=== PATIENT | female | born 1960 | race Caucasian/White ===

== ENCOUNTER 2018-01-27 08:01 | Emergency (ER) | payer BC ==
[~2018-01-27] VITALS: Ht 162.6 cm; Wt 72.6 kg
[2018-01-27 08:10] VITALS: BP 172/97
[2018-01-27 09:15] LABS: Basophils # (auto) 0 uL; Basophils % (auto) 0.7 % (0.0-2.0); Eosinophils # (auto) 0.1 uL; Eosinophils % (auto) 1.9 % (0.0-7.0); Hematocrit 43.3 % (36.0-46.0); Hemoglobin 14.7 g/dL (12.2-16.2); Lymphocytes # (auto) 1.1 uL; Lymphocytes % (auto) 17.5 % (10.0-50.0); Mean Corpuscular Hemoglobin 30.8 pg (28.0-32.0); Mean Corpuscular Volume 90.8 fL (80.0-100.0); Monocytes # (auto) 0.2 uL; Monocytes % (auto) 3.7 % (0.0-12.0); Neutrophils # (auto) 4.8 uL; Neutrophils % (auto) 76.2 % (37.0-80.0); Nucleated Red Blood Cells % 0.1 %; Platelet Count (auto) 234 10^3/uL (140-450); Red Blood Cells 4.77 10^6/uL (4.0-5.20); Red Cell Distribution Width 12.5 % (11.8-14.3); White Blood Cell 6.3 10^3/uL (4.4-10.8)
[2018-01-27 09:41] LABS: Alanine Aminotransferase 34 U/L (13-56); Albumin 4.2 g/dL (3.4-5.0); Alkaline Phosphatase 76 U/L (45-117); Anion Gap 8 (5-15); Aspartate Aminotransferase 20 U/L (15-37); BUN/Creatinine Ratio 16.2; Bilirubin, Total 0.6 mg/dL (0.2-1.0); Blood Urea Nitrogen 11 mg/dL (7-18); Calcium 9.8 mg/dL (8.5-10.1); Carbon Dioxide 27 mmol/L (21-32); Chloride 103 mmol/L (98-107); GFR African American 114 mL/min; GFR Non-African American 94 mL/min; Glucose 141 mg/dL (74-106); Potassium 3.5 mmol/L (3.5-5.1); Sodium 138 mmol/L (136-145); Total Protein 7.5 g/dL (6.4-8.2)
== END 2018-01-27 11:42 | disposition left against medical advice (07) ==
LOC: ER 08:01
DX: R07.89 Other chest pain (principal); Z53.21 Procedure and treatment not carried out due to patient leaving prior to being seen by health care provider
CPT/HCPCS: 36415; 71046; 80053; 84484; 85025; 93005

== ENCOUNTER 2020-07-13 05:00 | Inpatient (IN) | payer BC ==
[~2020-07-13] VITALS: Ht 162.6 cm; Wt 75.7 kg
[2020-07-13] MEDS ORDERED: ONDANSETRON HCL 4 MG/2 ML VIAL IV ONE (06:00)
[2020-07-13] MEDS ORDERED: SODIUM CHLORIDE 0.9% 1,000 ML IV ONE (06:00)
[2020-07-13 06:49] LABS: Basophils # (auto) 0 10 ^3/uL (0-0.2); Basophils % (auto) 0.4 % (0.0-2.0); Eosinophils # (auto) 0 10 ^3/uL (0-0.8); Eosinophils % (auto) 0.1 % (0.0-7.0); Hematocrit 38.7 % (36.0-46.0); Hemoglobin 13.2 g/dL (12.2-16.2); Lymphocytes # (auto) 0.3 10 ^3/uL (0.4-5.4); Lymphocytes % (auto) 3.2 % (10.0-50.0); Mean Corpuscular Hemoglobin 31.4 pg (28.0-32.0); Mean Corpuscular Hgb Conc. 34.2 g/dL (32.0-36.0); Monocytes # (auto) 0.4 10 ^3/uL (0-1.3); Neutrophils # (auto) 8.5 10 ^3/uL (1.6-8.6); Neutrophils % (auto) 92.3 % (37.0-80.0); Platelet Count (auto) 205 10^3/uL (140-450); Red Cell Distribution Width 12.5 % (11.8-14.3); White Blood Cell 9.3 10^3/uL (4.4-10.8)
[2020-07-13] MEDS ORDERED: LABETALOL HCL 5 MG/ML 4ML SYRINGE IV ONE (07:00)
[2020-07-13 07:10] LABS: Calcium 9.2 mg/dL (8.5-10.1); Potassium 3.5 mmol/L (3.5-5.1)
[2020-07-13 07:13] LABS: Bilirubin, Total 0.5 mg/dL (0.2-1.0); Total Protein 7.3 g/dL (6.4-8.2)
[2020-07-13 07:19] LABS: Amylase 16 U/L (25-115); Lipase 103 U/L (73-393)
[2020-07-13] MEDS ORDERED: ACETAMINOPHEN 325 MG TAB PO ONE (07:30)
[2020-07-13] MEDS ORDERED: HYDROcodone-ACET 10/325MG TAB PO ONE (07:30)
[2020-07-13 08:18] LABS: Urine Amorphous Crystal MOD /hpf (None Seen); Urine Bacteria FEW /hpf (None Seen); Urine Blood 3+ /uL (Negative); Urine Budding Yeast OCCASIONAL /hpf (None Seen); Urine Mucus FEW (None Seen); Urine WBC 7 /hpf (0 - 5)
[2020-07-13] MEDS ORDERED: cefTRIAXone 1GM/50ML D5W 50 ML IV ONE (09:45)
[2020-07-13] MEDS ORDERED: AZITHROMYCIN 500MG/ 250ML 250 ML IV ONE (09:45)
[2020-07-13] MEDS ORDERED: DexAMETHasone SOD PHOS 10MG/1ML VIAL INJ IV ONE (09:45)
[2020-07-13] MEDS ORDERED: MORPHINE SULF INJ 2 MG/ML SYRINGE 1ML IV PRN ×3 (10:30→11:30)
[2020-07-13] MEDS ORDERED: NITROGLYCERIN 0.4 MG SL TAB SL PRN ×2 (10:30→11:30)
[2020-07-13] MEDS ORDERED: LISI30TA4 PO (11:19)
[2020-07-13] MEDS ORDERED: LEVO150T10 PO (11:19)
[2020-07-13] MEDS ORDERED: HYDR-531 PO (11:19)
[2020-07-13] MEDS ORDERED: HCTZ25T PO (11:19)
[2020-07-13] MEDS ORDERED: MULT-1018 PO (11:19)
[2020-07-13] MEDS ORDERED: DOCUSATE SOD 100 MG CAP PO PRN (11:30)
[2020-07-13] MEDS ORDERED: LORazepam 0.5 MG TAB PO PRN (11:30)
[2020-07-13] MEDS ORDERED: ALUM & MAG HYDROX-SIMETH LIQ(MAALOX) 30 ML PO PRN (11:30)
[2020-07-13] MEDS ORDERED: ONDANSETRON HCL 4 MG/2 ML VIAL IV PRN (11:30)
[2020-07-13] MEDS ORDERED: ACETAMINOPHEN 500 MG TAB PO PRN (11:30)
[2020-07-13] MEDS: SODIUM CHLORIDE 0.9% 1,000 ML IV SCH ×2 (12:00→23:42)
--- NOTE | 2020-07-13 13:32 | NUR ---
Respiratory note: PT SPO2 97% ON ROOM AIR; HEART RATE 95 BPM; BP 113/52; RESPIRATORY RATE 16. PT IN NO RESPIRATORY DISTRESS AT THIS TIME, MEDICATION WITHHELD Addendum: 07/13/20 at 1333 by BRIGIDA WILLIS RT RT Amended: Links added.
[2020-07-13] MEDS: ALBUTEROL SULF HFA 90MCG INH 200DOSE IN SCH ×2 (13:33→21:38)
[2020-07-13] MEDS ORDERED: hydrALAZINE HCL 25 MG TAB PO PRN (14:15)
[2020-07-13] MEDS: HYDROcodone-ACET 5/325MG TAB PO PRN ×2 (15:35→19:54)
[2020-07-13 17:08] VITALS: BP 125/71
[2020-07-13 19:00] LABS: Alcohol, Urine < 3.0 mg/dL (0-10); Amphetamine Screen, Urine NEGATIVE (NEGATIVE); Barbiturate Scree,Urine NEGATIVE (NEGATIVE); Benzodiazephine Screen, Urine NEGATIVE (NEGATIVE); Cannabinoid Screen, Urine NEGATIVE (NEGATIVE); Cocaine Screen, Urine NEGATIVE (NEGATIVE); Opiate Scree,Urine NEGATIVE (NEGATIVE); Phencyclidine Screen, Urine NEGATIVE (NEGATIVE)
--- NOTE | 2020-07-13 19:30 | NUR ---
Opening Shift Note Assumed care of patient, awake and alert x4. Patient denies pain or shortness of breath at this time. No sign/symptoms of distress noted or verbalized at this time. Instructed on plan of care and encouraged patient to call for assistance as needed, patient verbalized understanding. Bed is locked in lowest position, side rails x 2 are up, and call light is within reach.
[2020-07-13 20:05] LABS: Magnesium 2.6 mg/dL (1.6-2.6)
[2020-07-13 20:11] LABS: Cholesterol 122 mg/dL (< 200); HDL Cholesterol 17 mg/dL (40-59); LDL Cholesterol 75 mg/dL (< 100); Triglycerides 187 mg/dL (< 150)
[2020-07-13 20:14] LABS: Lactate Dehydrogenase 237 U/L (84-246)
[2020-07-13 20:23] LABS: CRP High Sensitivity > 19 mg/dL (< 0.3)
[2020-07-13 21:35] VITALS: BP 116/59
[2020-07-13] MEDS: FAMOTIDINE (10MG/ML) 2ML VL IV SCH (21:35)
--- NOTE | 2020-07-13 21:40 | NUR ---
PT ASSESSED, NO SOB NOTED. SAT 97% ON RA. PT DOES NOT THINK SHE NEED BREATHING TX AT THIS TIME.
--- NOTE | 2020-07-13 21:58 | NUR ---
Hospitalist Paged RE: Sleeping Medication Hospitalist paged regarding sleeping medication. Awaiting call back.
[2020-07-13] MEDS ORDERED: BUDESONIDE (INHALATION) 180 MCG IH IN SCH (22:00)
--- NOTE | 2020-07-13 22:02 | NUR ---
Hospitalist Returned Call RE: Sleeping Medication Hospitalist returned call regarding sleeping medication. FIELD CLINICAL ENGINEER Myla notified that patient is requesting sleeping medication. Order received, read back and verified (see eMAR). Will carry out order as received.
[2020-07-13] MEDS ORDERED: TEMAZEPAM 15 MG CAP PO PRN (22:15)
--- NOTE | 2020-07-13 22:15 | NUR ---
Transfer Patient transferred from [address] [facility]. Patient transferred via wheelchair accompanied by staff. No sign/symptoms of distress noted upon departure. Report given to Iqra SCHMID. Patient care endorsed to Iqra SCHMID.
--- NOTE | 2020-07-13 22:20 | NUR ---
Received patient from room 235 to 208, SBAR given by Estella SCHMID. Patient is oriented to room and current POC. No questions or concerns at this time. Will continue to monitor.
[2020-07-13 22:30] VITALS: BP 114/42
--- NOTE | 2020-07-13 23:30 | NUR ---
Tele box #8 sent back and new tele box #41 received for patient.
[2020-07-14 05:01] VITALS: BP 127/61
[2020-07-14] MEDS ORDERED: LEVOTHYROXINE SODIUM 50 MCG TAB PO SCH (07:00)
[2020-07-14 07:03] LABS: Basophils # (auto) 0 10 ^3/uL (0-0.2); Basophils % (auto) 0.1 % (0.0-2.0); Eosinophils # (auto) 0 10 ^3/uL (0-0.8); Hematocrit 34.7 % (36.0-46.0); Hemoglobin 11.8 g/dL (12.2-16.2); Lymphocytes # (auto) 0.3 10 ^3/uL (0.4-5.4); Lymphocytes % (auto) 4.2 % (10.0-50.0); Mean Corpuscular Hemoglobin 31.3 pg (28.0-32.0); Mean Corpuscular Hgb Conc. 33.9 g/dL (32.0-36.0); Mean Corpuscular Volume 92.3 fL (80.0-100.0); Monocytes # (auto) 0.4 10 ^3/uL (0-1.3); Neutrophils # (auto) 7.3 10 ^3/uL (1.6-8.6); Neutrophils % (auto) 90.7 % (37.0-80.0); Platelet Count (auto) 215 10^3/uL (140-450); Red Blood Cells 3.76 10^6/uL (4.0-5.20); Red Cell Distribution Width 12.6 % (11.8-14.3); White Blood Cell 8.1 10^3/uL (4.4-10.8)
[2020-07-14 07:08] LABS: Albumin 2.4 g/dL (3.4-5.0); Calcium 8.9 mg/dL (8.5-10.1); Potassium 3.8 mmol/L (3.5-5.1)
[2020-07-14 07:11] LABS: BUN/Creatinine Ratio 24.4; Bilirubin, Total 0.4 mg/dL (0.2-1.0); Total Protein 6.6 g/dL (6.4-8.2)
--- NOTE | 2020-07-14 07:30 | NUR ---
Opening Shift Note Assumed patient care from NOC Rn. No signs of distress at this time. Respirations even and unlabored. Safety precautions in place, will continue to monitor q1hr and PRN.
--- NOTE | 2020-07-14 07:35 | NUR ---
IV insertion IV access obtained, via clean sterile technique by inserting 22 gauge catheter at right hand after 2 attempt(s). IV secured properly. No trauma to site. Patient tolerated well. IV removal from RFA due to leaking IV DC'd with clean sterile technique, catheter fully intact. Pressure dressing applied to site. Patient tolerated well.
[2020-07-14 09:00] VITALS: BP 136/75
[2020-07-14] MEDS ORDERED: cefTRIAXone 1GM/50ML D5W 50 ML IV SCH (09:00)
[2020-07-14] MEDS: FAMOTIDINE (10MG/ML) 2ML VL IV SCH ×2 (09:48→21:23)
[2020-07-14] MEDS ORDERED: DexAMETHasone SOD PHOS 10MG/1ML VIAL INJ IV SCH (10:00)
[2020-07-14] MEDS ORDERED: LISINOPRIL 20 MG TAB PO SCH (10:00)
[2020-07-14] MEDS ORDERED: CHOLECALCIFEROL (VITD3) 2,000 UNIT CAP PO SCH (10:00)
[2020-07-14] MEDS ORDERED: ZINC SULFATE 220mg CAP or TAB PO SCH (10:00)
[2020-07-14] MEDS ORDERED: ASCORBIC ACID 1,000 MG TAB PO SCH (10:00)
[2020-07-14] MEDS ORDERED: AZITHROMYCIN 500MG/ 250ML 250 ML IV SCH (10:00)
[2020-07-14] MEDS ORDERED: ENOXAPARIN SOD 40 MG/0.4 ML SYRINGE SC SCH (10:00)
[2020-07-14 14:27] VITALS: BP 127/74
[2020-07-14] MEDS ORDERED: levoFLOXacin 500MG 100 ML IV SCH (15:00)
--- NOTE | 2020-07-14 15:53 | NUR ---
Radiology Received call from radiology. Per radiologist, patient to remain NPO for CT angio and obtain 20g IV for contrast. Addendum: 07/14/20 at 1809 by NATHAN SEARS RN RN Per tech, CT will be ready for patient in approximately 1.5hr.
--- NOTE | 2020-07-14 16:25 | NUR ---
at Bedside Dr. Ray at bedside discussing plan of care with patient. Per Dr. Ray, patient to be discharged if CT and 12 Lead EKG both negative. Will notify MD when results are available. Dr. Ray is aware of run of Afib, per MD, obtain 12 lead EKG.
--- NOTE | 2020-07-14 16:35 | NUR ---
12 Lead Obtained [address] Ray verbal orders.
[2020-07-14 17:01] VITALS: BP 121/67
[2020-07-14] MEDS ORDERED: IOHEXOL 350 MG/ML 100ML IJ ONE (17:20)
--- NOTE | 2020-07-14 17:30 | NUR ---
IV Insertion IV inserted to left FA 20gauge by Ludivina Mayen RN.
[2020-07-14] MEDS ORDERED: LEVO500T21 PO (18:23)
[2020-07-14] MEDS ORDERED: LEVO137T3 PO (18:23)
[2020-07-14] MEDS ORDERED: ALBUAER3 IN (18:23)
--- NOTE | 2020-07-14 18:40 | NUR ---
Off Unit Patient taken off unit for CT Angio. Addendum: 07/14/20 at 1937 by NATHAN SEARS RN RN Patient has left forearm 20 gauge IV, flushes well.
--- NOTE | 2020-07-14 19:30 | NUR ---
Opening Shift Note pt off unit to CT
--- NOTE | 2020-07-14 19:37 | NUR ---
Closing Note Endorsed care to NOC RNMicah. Endorsed discharge instructions. Per manufacturing technician, CT results will be available on 10/18 AM. RN aware to call Dr. Ray with CT results and 12 lead EKG per request.
--- NOTE | 2020-07-14 19:40 | NUR ---
pt got back to floor from CT
--- NOTE | 2020-07-14 19:45 | NUR ---
paged hospitalist for pt's sleeping pill. awaiting callback
--- NOTE | 2020-07-14 21:36 | NUR ---
paged Dr. Bashir regarding pt's DC. awaiting for call back
--- NOTE | 2020-07-14 21:46 | NUR ---
spoke with Dr. Bashir about pt's DC as ordered by Dr. Ray.Informed MD of pt's CT result negative stated to go ahead and dc the pt.
[2020-07-14 22:00] VITALS: BP 127/67
--- NOTE | 2020-07-14 23:15 | NUR ---
IV removal IV DC'd with sterile technique, catheter fully intact. Pressure dressing applied to site. Patient tolerated procedure well. Discharged with aftercare instructions per MD.
--- NOTE | 2020-07-14 23:30 | NUR ---
VS stable, denies any distress or pain. discharged pt. walked her down to main lobby.
--- NOTE | 2020-07-17 16:24 | NUR ---
re-assessment Per Amilcar at [facility] she has accepted patient for service. Addendum: 07/17/20 at 1629 by Farhana WESLEY Amended: Links added.
== END 2020-07-14 23:30 | disposition home health service (06) | DRG 194 ==
LOC: ER 05:00 → TELE 05:01 → TELE-EAST 14:52 → TELE-CENTR 22:14
PROVIDERS: ADMIT Hospitalist; ATTEND Hospitalist
DX: J18.9 Pneumonia, unspecified organism (principal); E87.1 Hypo-osmolality and hyponatremia; E44.1 Mild protein-calorie malnutrition; N10 Acute pyelonephritis; E86.0 Dehydration; K75.9 Inflammatory liver disease, unspecified; I10 Essential (primary) hypertension; E03.9 Hypothyroidism, unspecified; M19.90 Unspecified osteoarthritis, unspecified site; Z20.828 Contact with and (suspected) exposure to other viral communicable diseases; Z79.899 Other long term (current) drug therapy; Z82.49 Family history of ischemic heart disease and other diseases of the circulatory system; Z79.891 Long term (current) use of opiate analgesic; Z68.28 Body mass index [BMI] 28.0-28.9, adult
CPT/HCPCS: 36415; 71045; 71275; 74176; 80053; 80061; 80307; 81001; 82150; 82728; 83036; 83605; 83615; 83690; 83735; 84439; 84443; 84484; 85025; 85379; 86141; 87086; 87088; 87186; 87426; 93970; 96361; 96365; 96366; 96367; 96375; G0378; J0696; J1100; J1956; J2405; J3490